=== PATIENT | male | born 1995 | race Caucasian/White ===

== ENCOUNTER 2017-04-08 00:57 | Emergency (ER) | payer OTHER ==
[2017-04-08 01:03] VITALS: BP 174/93; PULSE 107; RESP 16; TEMP 98.1; O2SAT 96
--- NOTE | 2017-04-08 01:06 | EDPHY ---
H & P Stated Complaint: L HAND LAC HPI/ROS: HPI CHIEF COMPLAINT: Left hand laceration HISTORY OF PRESENT ILLNESS: This patient very pleasant 21-year-old male otherwise healthy no significant medical history presents emergency room with a hand laceration to the palmar aspect the left hand 4 cm in vertical orientation to the thenar eminence. No tendon involvement. No arterial involvement. Full function of his left hand. Full range of motion. Neurovascular intact. He states he was on a roof. He was climbing down from the roof caught his hand on the gutter. He did have 5 beers this evening. He is intoxicated. No other injuries. Tetanus shot is up-to-date. Past Medical History: Asthma Past Surgical History: No significant surgical history Social History: Denies daily use of drugs alcohol tobacco products. Admits to alcohol this evening. Family History: No contributory ROS REVIEW OF SYSTEMS: A comprehensive 10 point review of systems is otherwise negative aside from elements mentioned in the history of present illness. Exam Constitutional appears well nontoxic, intoxicated, smells of alcohol triage nursing summary reviewed, vital signs reviewed, awake/alert. Eyes normal conjunctivae and sclera, EOMI, PERRLA. HENT normal inspection, atraumatic, moist mucus membranes, no epistaxis, neck supple/ no meningismus, no raccoon eyes. Respiratory clear to auscultation bilaterally, normal breath sounds, no respiratory distress, no wheezing. Cardiovascular rate normal, regular rhythm, no murmur, no edema, distal pulses normal. Gastrointestinal soft, non-tender, no rebound, no guarding, normal bowel sounds, no distension, no pulsatile mass. Genitourinary no CVA tenderness. Musculoskeletal no midline vertebral tenderness, full range of motion, no calf swelling, no tenderness of extremities, no meningismus, good pulses, neurovascularly intact. Skin left hand: Vertically oriented laceration 4 cm in vertical length. Palmar side thenar eminence but no arterial injury. No tendon injury. Neurovascular intact. Good range of motion. Full range motion. Good cap refill. Neurologic awake, alert and oriented x 3, AAOx3, moves all 4 extremities equally, motor intact, sensory intact, CN II-XII intact, normal cerebellar, normal vision, normal speech. Psychiatric normal mood/affect. Heme/Lymph/Immune no lymphadenopathy. Differential Diagnosis: Left hand laceration. Upped hand soft tissue injury. Medical Decision Making: Plan for this patient left hand laceration repair. The wound copiously. And suture close. Sutures out in 12-14 days patient understands. His tetanus shot is up-to-date. Explored for foreign bodies. Re-evaluation: Laceration Repair Procedure: Verbal Consent was obtained, Under sterile conditions, The patient had lidocaine with epinephrine used approximately 8ccs to local anesthetize the Left hand palmar side, thenar eminence 4 cm Laceration. The wound was copiously irrigated with sterile fluid, the wound was explored for foreign bodies there were none visualized, the wound was explored with a sterile glove to the base. There are no deep structures involved, including no arterial injury. EIGHT Interrupted 6.0 Prolene. interrupted Sutures were placed in this patient's laceration. He had good close approximation of the wound edges. He Tolerated this well. Patient understands keep wound, clean, dry, protected. Additionally sutures out in 12-14 days. Warm soapy water only. Return if any worsening symptoms questions or concerns. Source: Patient - Personal History Current Tetanus Diphtheria and Acellular Pertussis (TDAP): Yes - Medical/Surgical History Hx Asthma: Yes Other PMH: ASTHMA - Social History Smoking Status: Current some day smoker Constitutional: Initial Vital Signs Temperature (C) 36.7 C 04/08/17 01:02 Heart Rate 107 H 04/08/17 01:02 Respiratory Rate 16 04/08/17 01:02 Blood Pressure 174/93 H 04/08/17 01:02 O2 Sat (%) 96 04/08/17 01:02 O2 Delivery Mode Room Air Allergies/Adverse Reactions: No Known Allergies Allergy (Unverified 02/22/15 14:44) Home Medications: Medication Instructions Recorded Albuterol Sulfate [Albuterol 1 - 2 puffs IH Q4H 02/22/15 Inhaler Hfa] Departure - Departure Disposition: Home, Routine, Self-Care Clinical Impression: Laceration Condition: Good Instructions: Care For Your Stitches (ED), Laceration (ED) Additional Instructions: 1. Monitor your wound closely for infection. 2. Return emergency room if you have any questions or concerns about your laceration. 3. Your sutures need to be removed in 12-14 days. 4. Keep your wound clean, dry and protected. Warm soapy water is fine in 24 hours. Referrals: NONE *PRIMARY CARE P,. [Primary Care Provider] - As per Instructions
[2017-04-08] MEDS ORDERED: IBUPROFEN 600 MG TAB PO ONE ×2 (01:33→01:34)
== END 2017-04-08 01:36 | disposition home or self-care (01) ==
PROC: 0HQGXZZ Repair Left Hand Skin, External Approach (ICD-10-PCS; principal; 2017-04-08)
DX: S61.412A Laceration without foreign body of left hand, initial encounter (principal); J45.909 Unspecified asthma, uncomplicated; F17.200 Nicotine dependence, unspecified, uncomplicated; W45.8XXA Other foreign body or object entering through skin, initial encounter